=== PATIENT | female | born 1960 | race Caucasian/White ===

== ENCOUNTER → 2019-01-19 | Day surgery (SDC) | payer BC ==
[~2019-01-19] MED LIST: BUPIVACAINE HCL 0.5% INJ 30 ML VIAL INJ ONE; CLINDAMYCIN PHOS 900MG/ 50ML 50 ML IV ONE; DEXAMETHASONE SOD PHOS INJ 4 MG/ML VIAL ONE; FENTANYL CITRATE/PF 100MCG/2 ML INJ ONE; KETOROLAC TROMETHAMINE 30 MG/ML VIAL ONE; LIDOCAINE HCL 2% LOCAL INJ 5 ML SDV VIAL INJ ONE; MIDAZOLAM HCL 2 MG/2 ML VIAL ONE; ONDANSETRON HCL INJ 2MG/ML 2ML 2 MG/ML VIAL ONE; PROPOFOL IV EMULSION 10 MG/ML 20 ML VIAL ONE; SEVOFLURANE INHAL SOLN 250 ML PEN BTL ONE
--- OUTSIDE RECORDS SUMMARY | 2019-01-19 05:32 | XMS REPORT ---
[facility] Unknown Phone Unavailable Care Team Providers Care Automated Process Operator Name Role Phone Unavailable Unavailable Problems This patient has no known problems. Allergies, Adverse Reactions, Alerts This patient has no known allergies or adverse reactions. Medications This patient has no known medications. Results Test Description Test Time Test Comments Text Results Atomic Results Result Comments BREAST ULTRASOUND LEFT 2018-11-03 11:42:38 - BREAST ULTRASOUND LEFTULTRASOUND OF LEFT BREAST: 11/03/2018CLINICAL: Followup to previous exam. Comparison is made to exams dated 11/03/2018 mammogram, 12/02/2017 ultrasound, 05/06/2017 ultrasound, 05/06/2017 mammogram, and 04/15/2017 mammogram - [facility]-. Color flow and real-time ultrasound of the left breast were performed. Carver scale images of the real-time examination were reviewed. The breast tissue has scattered fibroglandular background echotexture. Targeted left breast ultrasound demonstrates a stable 4 mm complicated cyst at 3 o'clock, 2 cm from the nipple, since 2017. The rest of the left breast survey ultrasound is negative. No axillary lymphadenopathy was seen.IMPRESSION: PROBABLY BENIGN - FOLLOW-UP RECOMMENDEDStable complicated cyst since 05/2017. Findings are proba se benign, BI-RADS 3. A follow-up ultrasound in 12 months is recommended at the time of screening mammography. Jalen Carbone M.D. ss/:11/03/2018 11:42:38 Attendance Clerk: Miranda MONAHAN, [facility]- FWletter sent: Short Term Follow Up Ultrasound BI-RADS: 3 Probably benign SCR MAMM BILATERAL SHALINI CAD DIGITAL 2018-11-03 11:40:38 - SCR MAMM BILATERAL SHALINI CAD DIGITALBILATERAL DIGITAL SCREENING MAMMOGRAM 3D/2D WITH CAD: 11/03/2018CLINICAL: Asymptomatic. Digital breast tomosynthesis was performed in addition to routine CC and MLO views. Current mammographic images were evaluated by either a [employer] M-Vu or a [email or web address] ImageChecker CAD (computer aided detection system). Comparison is made to exams dated 04/15/2017 mammogram, 2014 mammogram, and 06/01/2013 mammogram - [facility]. There are scattered fibroglandular tissues in both breasts. There is a benign calcification in the left breast. There are mole markers on the left breast. No suspicious mass, architectural distortion, malignant type calcification, or lymph node abnormality detected. Breast architecture is stable compared to prior exams.IMPRESSION: INCOMPLETE ASSESSMENT: ADDITIONAL IMAGING EVALUATION RECOMMENDEDUltrasound to follow.Jalen Carbone M.D. ss/:11/03/2018 11:40:38 Entry: - 11/08/2018 11:42:24Imaging Technologist: Jailyn MONAHAN, [facility]FWMammogram BI-RADS: 0 Indeterminate
[2019-01-19 08:30] VITALS: BP 142/76
--- NOTE | 2019-01-19 14:08 | Operative Report ---
DATE OF PROCEDURE: 01/19/2019 SURGEON: Clay Olivas DPM PREOPERATIVE DIAGNOSIS: Left hallux rigidus. POSTOPERATIVE DIAGNOSIS: Left hallux rigidus. PLANNED PROCEDURE: Left Kovacs bunionectomy with implant. SURGEON: Ariadne Luis DPM (Charley) FLEXBOARD OPERATOR: Clay Olivas DPM ANESTHESIA: General with a postoperative block consisting of 15 mL of 0.5% Marcaine plain mixed with 1 mL of dexamethasone phosphate. HEMOSTASIS: Pneumatic thigh tourniquet set at 350 mmHg for a total time of approximately 30 minutes. MATERIALS: One size [id number] toe reference implant, 2-0 Vicryl, 3-0 Vicryl, 4-0 nylon. ESTIMATED BLOOD LOSS: Less than 10 mL. PATHOLOGY: None. PROCEDURE NOTE: The patient was seen in the preoperative waiting room where the correct procedure and site were identified. The patient was brought to the operating room and placed on the operating table in the supine position. General anesthesia was initiated. At this time, a well-padded pneumatic tourniquet was placed about the patient's left thigh. The left foot, ankle, leg was then scrubbed, prepped, and draped in the usual aseptic manner. The left foot, ankle, and leg was exsanguinated with an Esmarch bandage and the pneumatic thigh tourniquet was inflated to 350 mmHg for a total time of approximately 30 minutes. Attention was directed to the dorsomedial aspect of the patient's left first metatarsophalangeal joint, where a 5 cm curvilinear incision was made directly over the joint medial to the extensor hallucis longus tendon. The incision was carried through subcutaneous tissue them from deep or underlying structures. All vital neurovascular structures were identified, retracted medially and laterally and all bleeders were cauterized or ligated as deemed necessary. Next, through the same incision a full lateral release was performed consisting of the deep transverse metatarsal ligament, lateral collateral ligament, as well as the fibular-sesamoidal ligament. Attention was directed to the first metatarsophalangeal joint, where a linear capsulotomy was made and the tissue was reflected to allow for good visualization of the first metatarsal head. There was noted to be multiple osteophyte fragments within the capsule dorsally as well as laterally. Upon examination of the articular cartilage, there was noted to be approximately less than 20% of articular cartilage to the base of the proximal phalanx as well as the head of the first metatarsal. Decision was made to proceed with an implant. Utilizing a sagittal saw, the medial eminence and dorsal eminence and lateral eminence of the first metatarsal head was resected and passed off to the back table. Next, the base of the proximal phalanx was excised and passed off to the back table. Next, the articular cartilage of the first metatarsal head, an osteotomy was performed, angled dorsal proximal to plantar distal per manufacture protocol. Next, utilizing a bur was smooth with anatomic alignment. Next, a guidewire was placed and confirmed via intraoperative fluoroscopy to be in the correct location. The proximal end was reamed, followed by guidewire placed in the distal phalanx and reamed as well. The temporary Sizer was placed and noted to be in good alignment. The wound was then copiously irrigated with sterile saline. Next, per manufacture protocol, grommets were placed and impacted into the metatarsal and proximal phalanx sides of the joint and the implant was placed and correct location was confirmed via intraoperative fluoroscopy. The wound was then copiously irrigated with sterile saline. Capsule and deep tissue were reapproximated with 2-0 Vicryl, subcutaneous tissue with 3-0 Vicryl, and the skin was closed using a running interlocking stitch of 4-0 Prolene. The patient tolerated the procedure and anesthesia well. The patient was transferred to the postoperative recovery unit with vital signs stable and vascular status intact. The incision site was then dressed with 4x4s, Kerlix, Jose wrap, and a postop shoe. The patient was transferred to the postoperative recovery room with vital signs stable and vascular status intact. The patient was monitored there for a short period time before being sent home with the following written and oral instructions. 1. Keep the dressing clean, dry, and intact. 2. The patient is to remain partial weightbearing in a postop shoe, minimally heel touch with the assistance of crutches. The patient is given the office number to contact us if any problems arise. CHUCKIE Mtz/MODL /[id number]
== END | disposition home or self-care (01) ==
LOC: OR 05:27
PROVIDERS: ATTEND Podiatrist Foot & Ankle Surgery
DX: M20.22 Hallux rigidus, left foot (principal); Z88.0 Allergy status to penicillin; K57.90 Diverticulosis of intestine, part unspecified, without perforation or abscess without bleeding; G47.33 Obstructive sleep apnea (adult) (pediatric); Z01.810 Encounter for preprocedural cardiovascular examination
CPT/HCPCS: 28291; 93005; J1100; J1885; J2001; J2250; J2405; J2704; J3010; L8642

== ENCOUNTER → 2019-09-07 | Day surgery (SDC) | payer BC, OTHER ==
[~2019-09-07] MED LIST changes: -FENTANYL CITRATE/PF 100MCG/2 ML INJ ONE; -KETOROLAC TROMETHAMINE 30 MG/ML VIAL ONE; -LIDOCAINE HCL 2% LOCAL INJ 5 ML SDV VIAL INJ ONE; +MELATONIN3 MG PO; -MIDAZOLAM HCL 2 MG/2 ML VIAL ONE; +MULTI-VITAMIN1 EACH PO; -ONDANSETRON HCL INJ 2MG/ML 2ML 2 MG/ML VIAL ONE; -PROPOFOL IV EMULSION 10 MG/ML 20 ML VIAL ONE; -SEVOFLURANE INHAL SOLN 250 ML PEN BTL ONE
--- NOTE | 2019-09-07 08:13 | Operative Report ---
DATE OF PROCEDURE: 09/07/2019 SURGEON: Clay Olivas DPM PREOPERATIVE DIAGNOSIS: Right peroneal tendon rupture. POSTOPERATIVE DIAGNOSIS: Right peroneal tendon rupture. PLANNED PROCEDURE: Right peroneal tendon repair. SURGEON: Ariadne Luis DPM (Charley) ANVIL SEATING PRESS OPERATOR: Clay Olivas DPM ANESTHESIA: General with a postoperative block consisting of 20 mL of 0.5% Marcaine plain. HEMOSTASIS: Pneumatic thigh tourniquet set at 350 mmHg for a total time of approximately 30 minutes. MATERIALS: 3-0 Vicryl, 4-0 Prolene, and 3-0 Prolene. ESTIMATED BLOOD LOSS: Less than 10 mL. PATHOLOGY: None. PROCEDURE NOTE: The patient was seen in the preoperative waiting room, where the correct procedure and site were identified. The patient was brought to the operating room and placed on the operating table in supine position. General anesthesia was initiated. At this time, a well-padded pneumatic tourniquet was placed about the patient's right thigh. The right foot, ankle, and leg were then scrubbed, prepped, and draped in the usual aseptic manner. The right, foot, ankle, and leg were then exsanguinated with an Esmarch bandage and the pneumatic thigh tourniquet was inflated to 350 mmHg for a total time of approximately 30 minutes. Attention was directed to the lateral aspect of the patient's right ankle, where an incision was made directly over the posterior aspect of the fibula extending to the inferior aspect of the fibula directly over the course of the peroneal tendons. The incision was carried to subcutaneous tissues them from deep or underlying structures. All vital and neurovascular structures were identified, retracted medially, and laterally and all bleeders were cauterized or ligated as deemed necessary. At this time, the dissection was carried down to the level of the peroneal retinaculum, which was incised and there was noted to be fluid within the tendon sheath. The dissection was carried down to the peroneus brevis as well as the peroneus longus tendon. The peroneus longus tendon was noted to be attenuated and stretched with moderate striations just along the course of the peroneal groove. Utilizing a #15 blade, the tendon was debrided of all necrotic and devitalized tissue. It was reapproximated utilizing simple interlocking suture with 4-0 Prolene in a tubularized fashion. The peroneal groove was noted to be intact. The peroneal retinaculum was reapproximated with 2-0 Vicryl, subcutaneous tissue with 3-0 Vicryl and the skin was closed using a running interlocking stitch with 4-0 Prolene, the peroneal tendons were noted to be in the peroneal groove with no subluxation. The incision site was then reapproximated with simple interrupted suture with 4-0 nylon. The incision site was then dressed with 4x4s, Kerlix, Webril, 4 x 30 posterior splint, followed by a 4-inch Jose wrap, and a 6-inch Jose wrap. The patient tolerated the procedure and anesthesia well. The patient was transferred to postoperative recovery room with vital signs stable and vascular status intact. The patient was monitored there for a short period time before being sent home with the following written and oral instructions: 1. Keep the dressing clean, dry, and intact. 2. The patient is to remain nonweightbearing in the posterior splint to avoid any ambulation until being seen in office. 3. The patient was given office number and instructed to contact us if any problems arise. CHUCKIE Mtz/DAVE /[id number]
[2019-09-07 08:45] VITALS: BP 148/80
== END | disposition home or self-care (01) ==
LOC: OR 05:00
PROVIDERS: ATTEND Podiatrist Foot & Ankle Surgery
DX: M66.871 Spontaneous rupture of other tendons, right ankle and foot (principal); M76.71 Peroneal tendinitis, right leg; G47.33 Obstructive sleep apnea (adult) (pediatric); U07.1 COVID-19; Z88.0 Allergy status to penicillin; Z01.810 Encounter for preprocedural cardiovascular examination; Z01.812 Encounter for preprocedural laboratory examination; Z11.59 Encounter for screening for other viral diseases
CPT/HCPCS: 27658; 87635; 93005; J1100